=== PATIENT | female | born 1990 | race American Indian/Alaskan Native ===

== ENCOUNTER 2017-02-22 08:17 | Outpatient (CLI) | payer MEDICAID ==
[2017-02-22 08:37] VITALS: BP 128/70
[2017-02-22] MEDS ORDERED: VISTARIL ONE (09:56)
[2017-02-22] MEDS ORDERED: VISTARIL PO PRN ×2 (09:57→12:01)
== END 2017-02-22 10:08 | disposition home or self-care (01) ==
LOC: TRG 08:17
PROVIDERS: ATTEND Obstetrics & Gynecology
CPT/HCPCS: Q0177

== ENCOUNTER 2017-02-22 13:08 | Inpatient (IN) | payer MEDICAID ==
[2017-02-22] MEDS ORDERED: ePHEDrine SULFATE IV PRN ×2 (13:31→16:58)
[2017-02-22] MEDS ORDERED: SUBLIMAZE IV PRN (13:31)
[2017-02-22] MEDS ORDERED: BRETHINE IVP PRN (13:31)
[2017-02-22] MEDS ORDERED: XYLOCAINE 2% INFILTRATI ONE (13:31)
[2017-02-22] MEDS ORDERED: MINERAL OIL PO PRN (13:31)
[2017-02-22] MEDS ORDERED: BRETHINE SUB-Q PRN (13:31)
--- NOTE | 2017-02-22 13:49 | History and Physical Report ---
History of Present Illness Date of examination: 02/22/17 Date of admission: 02/22/2017 Chief complaint: My water broke History of present illness: 26 y/o now 39.6 weeks with care at [facility] since 8 weeks gestation. 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 NOw with leaking of fluids since exam this am in the hospital. 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 Family/Genetic History: none, diabetes, hypertension Social history: no significant social history - Obstetrical History Expected Date of Delivery: 02/23/17 Actual Gestation: 39 Week(s) 6 Day(s) : 2 Para: 0 Spontaneous Abortions: 1 Number of Living Children: 0 Medications and Allergies Allergies Allergy/AdvReac Type Severity Reaction Status Date / Time No Known Allergies Allergy Unverified 09/09/14 09:49 Home Medications Medication Instructions Recorded Confirmed Last Taken Type Amoxicillin [Trimox CAP] 500 mg PO Q8H #21 capsule 09/09/14 Unknown Rx HYDROcodone/APAP 5-325 [[place] 1 each PO Q6HR PRN #16 tablet 09/09/14 Unknown Rx 5-325 mg TAB] Active Meds: Active Medications Ephedrine Sulfate (Ephedrine Sulfate) 10 mg IV Q2M PRN PRN Reason: Hypotension Stop: 02/22/17 13:36 Fentanyl (Sublimaze) 100 mcg IV Q2H PRN PRN Reason: Labor Pain Lactated Ringer's (Lactated Ringers) 1,000 mls @ 125 mls/hr IV DIRECT R[place] Oxytocin/Sodium Chloride (Pitocin/Ns 20 Unit/1000ml Drip) 20 units in 1,000 mls @ 125 mls/hr IV DIRECT ROME Oxytocin/Sodium Chloride (Pitocin/Ns 30 Unit/500ml) 30 units in 500 mls @ 4 mls /hr IV TITR ROME PRN Reason: Protocol Lidocaine (Xylocaine 2%) 20 ml INFILTRATI ONCE ONE Stop: 02/22/17 13:32 Mineral Oil (Mineral Oil) 30 ml PO QHS PRN PRN Reason: Constipation Terbutaline Sulfate (Brethine) 0.25 mg SUB-Q ONCE PRN PRN Reason: Hyperstimulation/Hypertonicity Stop: 02/22/17 13:32 Terbutaline Sulfate (Brethine) 0.25 mg IVP ONCE PRN PRN Reason: Hyperstimulation/Hypertonicity Stop: 02/22/17 13:32 Review of Systems All systems: negative - Physical Exam Breasts: Positive: deferred Cardiovascular: Regular rate Lungs: Positive: Clear to auscultation Abdomen: Positive: soft Genitourinary (Female): Positive: normal external genitalia Vulva: both: normal Vagina: Positive: normal moisture Uterus: Positive: enlarged Deep Tendon Reflex Grade: Normal +2 - Obstetrical FHR: category 1 Uterine Contraction Monitor Mode: Palpation Cervical Dilatation: 1 Cervical Effacement Percentage: 80 station: 0 Uterine Contraction Pattern: Irregular Uterine Contraction Intensity: Mild Results All other labs normal. Assessment and Plan A: IUP @ 39.6 weeks, srom P: Pitocin agmentation Epidural Expect
[2017-02-22] MEDS ORDERED: PITOCin/NS 30 UNIT/500ML 30 UNITS/500 ML BAG IV SCH (14:00)
[2017-02-22] MEDS ORDERED: PITOCin/NS 20 UNIT/1000ML DRIP 20 UNITS/1,000 ML BAG IV SCH (14:00)
[2017-02-22 14:27] LABS: Hematocrit 34.9 % (30.3-42.9); Hemoglobin 11.6 gm/dl (10.1-14.3); Mean Corpuscular HGB Conc 33 % (30-34); Mean Corpuscular Hemoglobin 30 pg (28-32); Mean Corpuscular Volume 91 fl (79-97); Platelet Count 267 K/mm3 (140-440); Red Blood Count 3.85 M/mm3 (3.65-5.03); Red Cell Distribution Width 14.2 % (13.2-15.2); White Blood Count 8.7 K/mm3 (4.5-11.0)
[2017-02-22] MEDS: LACTATED RINGERS 1,000 ML IV SCH ×2 (15:26→16:00)
[2017-02-22] MEDS ORDERED: ePHEDrine SULFATE ONE (16:30)
[2017-02-22] MEDS ORDERED: NARCAN 2 MG/2 ML IV PRN (16:58)
--- NOTE | 2017-02-22 16:58 | Anesthesia Consultation ---
Anesthesia Consult and Med Hx Date of service: 02/22/17 - Airway Anesthetic Teeth Evaluation: Good ROM Head & Neck: Adequate Mental/Hyoid Distance: Adequate Mallampati Class: Class II Intubation Access Assessment: Probably Good - Pre-Operative Health Status ASA Pre-Surgery Classification: ASA2 Proposed Anesthetic Plan: Epidural, Spinal - Pulmonary Hx Smoking: Yes (quit 2015) Hx Asthma: No - Cardiovascular System Hx Hypertension: No - Central Nervous System Hx Seizures: No Hx Psychiatric Problems: No - Endocrine Hx Renal Disease: No Hx Hypothyroidism: No Hx Hyperthyroidism: No - Hematic Hx Anemia: No Hx Sickle Cell Disease: No - Other Systems Hx Alcohol Use: (RED WINE)
[2017-02-22] MEDS ORDERED: fentaNYL-BUPIV 2 MCG/ML-0.125% 200 MCG/100 ML BAG EPIDURAL SCH (17:00)
[2017-02-22] MEDS ORDERED: MILK OF MAGNESIA PO PRN (18:31)
[2017-02-22] MEDS ORDERED: TUCKS PAD TP PRN (18:31)
[2017-02-22] MEDS ORDERED: NORCO 5/325 PO PRN (18:31)
[2017-02-22] MEDS ORDERED: TYLENOL PO PRN (18:31)
[2017-02-22] MEDS ORDERED: DULCOLAX PR PRN (18:31)
[2017-02-22] MEDS ORDERED: PHENERGAN PO PRN (18:31)
[2017-02-22] MEDS ORDERED: LANSINOH TP PRN (18:31)
[2017-02-22] MEDS ORDERED: BENADRYL PO PRN (18:31)
[2017-02-22] MEDS ORDERED: ZOFRAN IV PRN (18:31)
[2017-02-22] MEDS ORDERED: DERMOPLAST TP PRN (18:31)
--- NOTE | 2017-02-22 18:39 | Procedure Note ---
OB Delivery Note - Delivery Date of Delivery: 02/22/17 Surgeon: CHALINO DEJESUS Estimated blood loss: 100cc - Vaginal Delivery presentation: vertex Delivery position: OA Delivery induction: none Delivery augmentation: pitocin Delivery monitor: external FHT, external uterine Route of delivery: Delivery placenta: spontaneous Delivery cord: 3 umbilical vessels Episiotomy: none Delivery laceration: none Anesthesia: epidural Delivery comments: of a viable female 6#6 oz on 02/22/2017 @ 6:19pm over intact perineum. Placenta delivered 3VCI. Apgars 9/9. FF @ U-2 lochia small. EBL 100. Mother and baby doing well. - Infant A at 1 minute: 9 at 5 minutes: 9 Infant Gender: Female (6#-6oz)
[2017-02-22] MEDS ORDERED: SODIUM CHLORIDE FLUSH SYRINGE 10 ML IV NR (19:00)
[2017-02-22] MEDS: MOTRIN PO SCH (20:54)
[2017-02-23] MEDS: MOTRIN PO SCH ×2 (01:10→12:03)
[2017-02-23 08:43] LABS: Hemoglobin 11.6 gm/dl (10.1-14.3)
--- NOTE | 2017-02-23 09:47 | Progress Note ---
Assessment and Plan A: PPD 1 s/p VSS Pain well controlled Ambulating, eating and voiding well P: Routine PP care Plans for contraception include pills. Declines depo in hopsital Plans for D/C tomorrow Subjective - Subjective Date of service: 02/23/17 Principal diagnosis: PPD1 Interval history: 26 YO s/p at 39.6 over intact perineum. Patient reports: appetite normal, voiding normally, pain well controlled, ambulating normally Semora: doing well Objective - Vital Signs Latest vital signs: Vital Signs Temp Pulse Pulse Pulse Resp BP BP 02/23/17 08:04 98.6 F 76 20 108/74 02/23/17 05:36 98.6 F 70 20 116/57 02/23/17 01:05 98.8 F 84 18 127/62 02/22/17 19:47 98.7 F 72 18 128/63 02/22/17 19:22 85 02/22/17 19:21 79 02/22/17 19:16 74 02/22/17 19:11 83 02/22/17 19:10 96 H 128/63 02/22/17 19:03 70 02/22/17 18:55 84 116/55 02/22/17 18:54 99 H 02/22/17 18:49 100 H 02/22/17 18:46 87 02/22/17 18:41 79 02/22/17 18:40 127 H 137/62 02/22/17 18:36 84 02/22/17 18:25 97.6 F 83 16 123/58 02/22/17 17:56 93 H 125/74 02/22/17 17:42 84 124/54 02/22/17 17:25 97.6 F 78 16 02/22/17 17:24 79 122/59 02/22/17 17:22 75 114/59 02/22/17 17:20 72 114/55 02/22/17 17:18 82 144/65 02/22/17 17:16 77 137/61 02/22/17 17:15 78 02/22/17 17:14 76 137/63 02/22/17 17:12 81 142/63 02/22/17 17:10 74 136/65 02/22/17 17:08 75 137/63 02/22/17 17:06 78 135/61 03/27/17 17:05 82 02/22/17 17:04 78 137/60 02/22/17 17:02 131 H 146/64 02/22/17 17:00 75 138/61 02/22/17 16:58 85 143/68 02/22/17 16:56 74 121/69 02/22/17 16:55 72 02/22/17 16:54 74 134/69 02/22/17 16:52 72 133/67 02/22/17 16:50 86 130/63 02/22/17 16:48 81 129/60 02/22/17 16:46 93 H 132/61 02/22/17 16:45 83 02/22/17 16:44 91 H 130/62 02/22/17 16:40 90 113/55 02/22/17 16:29 98 H 02/22/17 16:24 83 02/22/17 16:19 84 02/22/17 16:14 97 H 02/22/17 15:25 89 02/22/17 15:20 68 02/22/17 15:17 93 H 02/22/17 15:12 75 02/22/17 15:07 75 02/22/17 15:02 80 02/22/17 14:57 79 02/22/17 14:52 79 02/22/17 14:51 82 02/22/17 14:49 85 02/22/17 14:43 76 02/22/17 14:40 76 02/22/17 14:39 72 02/22/17 14:34 80 02/22/17 14:28 79 02/22/17 14:23 79 02/22/17 14:18 76 Pulse Ox 02/23/17 08:04 02/23/17 05:36 02/23/17 01:05 02/22/17 19:47 02/22/17 19:22 94 02/22/17 19:21 99 02/22/17 19:16 99 02/22/17 19:11 99 02/22/17 19:10 02/22/17 19:03 99 02/22/17 18:55 02/22/17 18:54 96 02/22/17 18:49 80 L 02/22/17 18:46 100 02/22/17 18:41 99 02/22/17 18:40 02/22/17 18:36 99 02/22/17 18:25 02/22/17 17:56 02/22/17 17:42 02/22/17 17:25 100 02/22/17 17:24 02/22/17 17:22 02/22/17 17:20 100 02/22/17 17:18 02/22/17 17:16 02/22/17 17:15 100 02/22/17 17:14 02/22/17 17:12 02/22/17 17:10 100 02/22/17 17:08 02/22/17 17:06 02/22/17 17:05 99 02/22/17 17:04 02/22/17 17:02 02/22/17 17:00 99 02/22/17 16:58 02/22/17 16:56 02/22/17 16:55 99 02/22/17 16:54 02/22/17 16:52 02/22/17 16:50 99 02/22/17 16:48 02/22/17 16:46 02/22/17 16:45 99 02/22/17 16:44 02/22/17 16:40 99 02/22/17 16:29 99 02/22/17 16:24 99 02/22/17 16:19 99 02/22/17 16:14 99 02/22/17 15:25 99 02/22/17 15:20 97 02/22/17 15:17 99 02/22/17 15:12 98 02/22/17 15:07 98 02/22/17 15:02 98 02/22/17 14:57 99 02/22/17 14:52 99 02/22/17 14:51 97 02/22/17 14:49 92 02/22/17 14:43 95 02/22/17 14:40 98 02/22/17 14:39 96 02/22/17 14:34 97 02/22/17 14:28 96 02/22/17 14:23 96 02/22/17 14:18 97 Intake and Output 02/22/17 02/23/17 02/23/17 22:59 06:59 14:59 Intake Total 1900 600 Output Total 300 1700 Balance 1600 -1100 Intake: IV 1900 Lactated Ringers 1,000 ml 1900 @ 125 mls/hr IV DIRECT [facility] Rx#:[id number] Intake, Free Water 600 Output: Urine 300 1700 Indwelling Catheter 300 Void 1700 Other: Total, Output Amount 300 700 Weight 172 lb Estimated Blood Loss 100 - Exam Cardiovascular: Present: Regular rate Lungs: Present: Normal air movement Vulva: both: normal (scant lochia) Uterus: Present: fundal height below umbilicus Extremities: Present: normal Deep Tendon Reflex Grade: Normal +2
--- NOTE | 2017-02-23 09:48 | Discharge Summary ---
Providers - Providers Date of Admission: 02/22/17 13:10 Date of discharge: 02/24/17 Attending physician: VERA ROSALES MD Primary care physician: VERA ROSALES MD Hospitalization Reason for admission: active labor Delivery: Laceration: none Other procedures: none complications: none Discharge diagnosis: IUP at term delivered baby: female Hospital course: uneventful Condition at discharge: Good Disposition: DISCHARGED TO HOME OR SELFCARE Plan - Provider Discharge Summary Activity: routine, no sex for 6 weeks, no heavy lifting 4 weeks, no strenuous exercise Diet: routine Instructions: routine Additional instructions: [] Smoking cessation referral if applicable(refer to patient education folder for contact #) [] Refer to [employer] [employer] Booklet Call your doctor immediately for: * Fever > 100.5 * Heavy vaginal bleeding ( >1 pad per hour) * Severe persistent headache * Shortness of breath * Reddened, hot, painful area to leg or breast * Drainage or odor from incision. * Keep incision clean and dry at all times and follow doctor's instructions regarding bathing/showering - Follow up plan Follow up: [facility] [Provider Group] - 6 Weeks
--- NOTE | 2017-02-23 10:27 | Progress Note ---
Subjective Date of service: 02/23/17 Principal diagnosis: PPD1 Interval history: 1st day after normal vaginal delivery Patient is in the bed, comfortable. Pain is well controlled with pain meds. Ambulated well. No residual neurological deficit. No anesthesia complications Objective - Constitutional Vitals: Vital Signs - 12hr 02/23/17 02/23/17 02/23/17 01:05 05:36 08:04 Temperature 98.8 F 98.6 F 98.6 F Pulse Rate [ 84 70 From Monitor] Pulse Rate [ 76 Left Radial] Respiratory 18 20 20 Rate Blood Pressure 127/62 116/57 108/74 [Left Arm] - Labs CBC & Chem 7: 02/23/17 08:01
[2017-02-24] MEDS: MOTRIN PO SCH ×2 (01:00→11:43)
[2017-02-24 09:03] VITALS: BP 115/63
== END 2017-02-24 12:15 | disposition home or self-care (01) | DRG 775 ==
LOC: TRG 13:08 → LD 13:10 → TRG 13:10 → OB 19:57
PROVIDERS: ADMIT Obstetrics & Gynecology; ATTEND Obstetrics & Gynecology
PROC: 10E0XZZ Delivery of Products of Conception, External Approach (ICD-10-PCS; principal; 2017-02-22)
PROC: 00HU33Z Insertion of Infusion Device into Spinal Canal, Percutaneous Approach (ICD-10-PCS; 2017-02-22)
PROC: 3E0R3CZ (ICD-10-PCS; 2017-02-22)
DX: O80 Encounter for full-term uncomplicated delivery (principal); Z3A.39 39 weeks gestation of pregnancy; Z37.0 Single live birth; Z83.3 Family history of diabetes mellitus; Z82.49 Family history of ischemic heart disease and other diseases of the circulatory system; Z86.19 Personal history of other infectious and parasitic diseases
CPT/HCPCS: 36415; 59025; 85014; 85018; 85027; 86850; 86900; 86901; A6250; J2590; J7120